=== PATIENT | female | born 1950 | race Caucasian/White ===

== ENCOUNTER 2019-08-28 17:18 | Emergency (ER) | payer MEDICARE, OTHER ==
[2019-08-28 17:55] LABS: ANION GAP 14.7; CHLORIDE,CL 102 mmol/L (101-111); SODIUM,NA 140 mmol/L (135-145)
--- NOTE | 2019-08-28 17:59 | EDM.PDOC ---
ED HPI GENERAL MEDICAL PROBLEM - General Stated Complaint: FALL Time Seen by Provider: 08/28/19 17:27 Source of Information: Reports: Patient History Limitations: Reports: No Limitations - History of Present Illness INITIAL COMMENTS - FREE TEXT/NARRATIVE: HPI: This 69 yo female patient was brought to the ED by family due to a ground level fall. The patient reports she was sitting on the couch with family. When she got up to make supper, the patient reports becoming dizzy and fell. The patient reports she hit her right side of her face on something. The patient reports she has pain to the right side of her face and is having difficulties seeing out of her right eye. Primary Survey Airway: open and patient Breathing: regular without additional effort Circulation: no major bleeding noted Deformity: no deformity noted Expose: as appropriate GCS: 15 Secondary Survey HEENT Head: Right sided facial tenderness, small abrasion to right lateral face, no acute bleeding Eyes: Right eye hyphema with blood filling entire chamber, some bleeding to the surrounding conjunctiva Ears: no obvious trauma, canals open Nose: no deformity, no bleeding, mucosa moist Mouth: no noted trauma Throat: no abnormalities noted Neck: Subtle, normal range of motion no cervical tenderness Chest: lung sounds were clear and equal bilaterally, Heart was RRR, no murmurs, rubs or gallop Abdomen: normoactive bowel sounds, no organomegally, no tenderness on palpation Pelvis: stable Extremities: CMS intact Provider Trauma Notes Arrival Time: 1720 GCS on Arrival: 15 C-collar present on arrival: No GCS at 1 hour: Off spine board: NA Time primary survey: 1727 Time secondary survey: 1732 Time C-collar cleared: By: Time removed: GCS on discharge: Onset: Today Duration: Minutes: Location: Reports: Head, Face Quality: Reports: Ache, Dull Severity: Moderate Improves with: Reports: None Worsens with: Reports: None Context: Reports: Trauma Associated Symptoms: Reports: No Other Symptoms - Related Data Allergies Allergy/AdvReac Type Severity Reaction Status Date / Time codeine Allergy Fainting Verified 08/27/18 07:10 Opioids - Morphine Analogues Allergy Lightheaded Verified 08/27/18 07:10 ness prednisone Allergy Hallucinati Verified 08/27/18 07:10 ons Home Meds: Home Meds Albuterol Sulfate [Proair Respiclick] 1 puff INH PRN 10/19/15 [History] Aspirin [Halfprin] 81 mg PO DAILY 10/19/15 [History] Isosorbide Mononitrate [Imdur] 60 mg PO DAILY 10/19/15 [History] Metoprolol Tartrate [Lopressor] 25 mg PO BID 10/19/15 [History] Multivitamin [Multivitamins] 1 each PO DAILY 10/19/15 [History] Nitroglycerin [Nitrostat] 0.4 mg PO ASDIRECTED 10/19/15 [History] Simvastatin [Zocor] 40 mg PO BEDTIME 10/19/15 [History] amLODIPine/Benazepril [Lotrel 5-10 MG] 5 - 10 cap PO DAILY 10/19/15 [History] metFORMIN [Glucophage XR] 500 mg PO BID 10/19/15 [History] DULoxetine HCl [Duloxetine HCl] 60 mg PO DAILY 08/27/18 [History] Fluticasone/Salmeterol [Advair 250-50 Diskus] 1 each IH ASDIRECTED 08/27/18 [ History] Gabapentin [Neurontin] 100 mg PO DAILY 08/27/18 [History] Vit C/Doran & Celery Ex/Grp E [Tart Doran] 1 cap PO BID 08/27/18 [History] atorvaSTATin [Lipitor] 40 mg PO BEDTIME 08/27/18 [History] Past Medical History - Infectious Disease History Infectious Disease History: Reports: Chicken Pox, Measles, Mumps Social & Family History - Family History Family Medical History: Noncontributory - Caffeine Use Caffeine Use: Reports: Coffee, Soda Review of Systems - Review of Systems Review Of Systems: ROS reveals no pertinent complaints other than HPI. ED EXAM, GENERAL - Physical Exam Exam: See Below Exam Limited By: No Limitations General Appearance: Alert, WD/WN, Moderate Distress Eye Exam: Right Eye: Other (Right hyphema (blood filling chamber) with bleeding to the conjunctiva also), Left Eye: PERRL, Bilateral Eye: EOMI Ears: Normal External Exam, Normal Canal, Hearing Grossly Normal, Normal TMs Nose: Normal Inspection, Normal Mucosa, No Blood Throat/Mouth: Normal Inspection, Normal Lips, Normal Teeth, Normal Gums, Normal Oropharynx, Normal Voice, No Airway Compromise Head: Facial Swelling (Right lateral face), Facial Tenderness (right lateral orbit and face) Neck: Normal Inspection, Supple, Non-Tender, Full Range of Motion Respiratory/Chest: No Respiratory Distress, Lungs Clear, Normal Breath Sounds, No Accessory Muscle Use, Chest Non-Tender Cardiovascular: Normal Peripheral Pulses, Regular Rate, Rhythm, No Edema, No Gallop, No JVD, No Murmur, No Rub GI/Abdominal: Normal Bowel Sounds, Soft, Non-Tender, No Organomegaly, No Distention, No Abnormal Bruit, No Mass (Female) Exam: Deferred Rectal (Female) Exam: Deferred Back Exam: Normal Inspection, Full Range of Motion, NT Extremities: Normal Inspection, Normal Range of Motion, Non-Tender, Normal Capillary Refill, No Pedal Edema Neurological: Alert, Oriented, CN II-XII Intact, Normal Cognition, Normal Gait, Normal Reflexes, No Motor/Sensory Deficits Psychiatric: Normal Affect, Normal Mood Skin Exam: Warm, Dry, Normal Color, No Rash, Wound/Incision (small abrasion to right lateral face) Lymphatic: No Adenopathy Course - Orders/Labs/Meds Orders: Active Orders 24 hr Category Date Time Status EKG Documentation Completion [RC] URGENT Care 08/28/19 17:32 Ordered Cervical Spine wo Cont [CT] Urgent Exams 08/28/19 17:32 Ordered Head wo Cont [CT] Urgent Exams 08/28/19 17:32 Ordered Max Facial Sinus wo Cont [CT] Urgent Exams 08/28/19 17:32 Ordered CBC WITH AUTO DIFF [HEME] Urgent Lab 08/28/19 17:32 Ordered COMPREHENSIVE METABOLIC PN,CMP [CHEM] Urgent Lab 08/28/19 17:32 Ordered TROPONIN I [CHEM] Urgent Lab 08/28/19 17:32 Ordered Departure - Departure Time of Disposition: 18:06 Disposition: DC/Tfer to Acute Hospital 02 Condition: Serious Clinical Impression: Hyphema, right eye, Syncope and collapse Fall Qualifiers: Encounter type: initial encounter Qualified Code(s): W19.XXXA - Unspecified fall, initial encounter - Discharge Information *PRESCRIPTION DRUG MONITORING PROGRAM REVIEWED*: Not Applicable *COPY OF PRESCRIPTION DRUG MONITORING REPORT IN PATIENT BUCK: Not Applicable Forms: Interfacility Transfer EMTALA Care Plan Goals: Discussed the history, examination, EKG and CT results with Dr. Scruggs ([facility] ED) . Dr. Scruggs accepted the patient for continued evaluation and management through the emergency department at [facility] in [place]. The patient will be transported by [facility]. - My Orders Last 24 Hours: My Active Orders 08/28/19 17:32 EKG Documentation Completion [RC] URGENT Cervical Spine wo Cont [CT] Urgent Head wo Cont [CT] Urgent Max Facial Sinus wo Cont [CT] Urgent CBC WITH AUTO DIFF [HEME] Urgent COMPREHENSIVE METABOLIC PN,CMP [CHEM] Urgent TROPONIN I [CHEM] Urgent - Assessment/Plan Last 24 Hours: My Active Orders 08/28/19 17:32 EKG Documentation Completion [RC] URGENT Cervical Spine wo Cont [CT] Urgent Head wo Cont [CT] Urgent Max Facial Sinus wo Cont [CT] Urgent CBC WITH AUTO DIFF [HEME] Urgent COMPREHENSIVE METABOLIC PN,CMP [CHEM] Urgent TROPONIN I [CHEM] Urgent
== END 2019-08-28 18:21 ==
LOC: DL.ED 17:18
DX: S05.11XA Contusion of eyeball and orbital tissues, right eye, initial encounter (principal); R55 Syncope and collapse; E11.9 Type 2 diabetes mellitus without complications; I25.2 Old myocardial infarction; Z88.5 Allergy status to narcotic agent; Z88.8 Allergy status to other drugs, medicaments and biological substances; Z79.899 Other long term (current) drug therapy; Z79.82 Long term (current) use of aspirin; Z79.84 Long term (current) use of oral hypoglycemic drugs; W18.30XA Fall on same level, unspecified, initial encounter; W22.8XXA Striking against or struck by other objects, initial encounter
CPT/HCPCS: 36415; 70450; 70486; 72125; 80053; 84484; 85025; 93005; 99284; 99285-25